=== PATIENT | male | born 1975 | race Caucasian/White ===

== ENCOUNTER 2024-04-23 17:23 | Emergency (ER) | payer MEDICAID, SELFPAY ==
[2024-04-23 18:03] VITALS: BP 122/80; PULSE 91; RESP 19; TEMP 36.5; O2SAT 97; BMI 40.4
--- NOTE | 2024-04-23 18:33 | XR_ITS ---
Examination: PA lateral chest 2 views TECHNIQUE: Upright PA lateral chest 2 views Exam date and time: April 23, 2024 at 1851 hours Comparison October 02, 2023 INDICATIONS: Chest pain fever today. FINDINGS: Normal heart size. Lungs are clear. The osseous structures are intact IMPRESSION: No active disease
--- NOTE | 2024-04-23 18:33 | EDRME_ITS ---
Rapid Medical Screening Exam [facility] Arrival date/time: 04/23/24 17:23 49M with history of HTN, psych disorder, and chronic back pain presents to ED with 1 day of CP, sore throat, and cough. Chief Complaint: Chest Pain Vital signs: Vital Signs Temperature 97.7 F 04/23/24 18:03 Pulse Rate 91 04/23/24 18:03 Respiratory Rate 19 04/23/24 18:03 Blood Pressure 122/80 04/23/24 18:03 Pulse Oximetry (%) 97 04/23/24 18:03 Oxygen Delivery Method Room Air 04/23/24 18:03
[2024-04-23 18:53] LABS: Basophils # (Auto) 0.1 Thou/mm3 (0.0-0.2); Basophils % (Auto) 0 % (0-2.5); Eosinophils % (Auto) 0 % (0-10); Hematocrit 46.4 % (41.0-53.0); Hemoglobin 15.5 g/dL (13.5-16.0); Immature Granulocytes % (Auto) 0 % (0-0); Immature Granulocytes Auto 0.07 Thou/mm3 (0.00-0.00); Lymphocytes # (Auto) 1.7 Thou/mm3 (1.0-4.8); Lymphocytes % (Auto) 10 % (10-50); Mean Corpuscular HGB Conc 33.4 g/dl (31.0-37.0); Mean Corpuscular Hemoglobin 29.2 pg (25.0-35.0); Mean Corpuscular Volume 87 fL (80-100); Monocytes # (Auto) 1.3 Thou/mm3 (0.0-0.8); Monocytes % (Auto) 7 % (0-12); Neutrophils % (Auto) 83 % (37-80); Nucleated Red Blood Cell % 0 /100 WBC (0); Platelet Count 246 Thou/mm3 (140-440); RDW Standard Deviation 45.5 fL (35.1-43.9); Red Blood Count 5.31 Miln/mm3 (4.50-5.90); White Blood Count 18.1 Thou/mm3 (3.8-10.6)
[2024-04-23 19:10] LABS: Alanine Aminotransferase 24 U/L (10-49); Albumin, Serum 4.9 gm/dL (3.5-5.0); Albumin/Globulin Ratio 1.5 (1.2-2.2); Alkaline Phosphatase 107 U/L (46-116); Anion Gap 3 (7-16); Aspartate Amino Transferase 20 U/L (0-34); BUN/Creatinine Ratio 11 Ratio (12-20); Bilirubin,Total 0.6 mg/dL (0.3-1.2); Blood Urea Nitrogen 11 mg/dL (9-23); Calcium 10.1 mg/dL (8.3-10.6); Calcium (Corrected) 10.1 mg/dL (8.5-10.1); Carbon Dioxide 29.3 mMol/L (20.0-31.0); Chloride 103 mMol/L (98-107); Estimated Creatinine Clearance 121.3 mL/min (>60); Globulin 3.2 gm/dL (2.3-3.5); Glucose 95 mg/dL (74-106); Osmolality,Calculated 269 (275-295); Potassium 4.6 mMol/L (3.4-5.1); Sodium 135 mMol/L (136-145); Total Protein 8.1 gm/dL (5.7-8.2); Troponin I < 0.020 ng/mL (0.0-0.045); eGFR > 60 See Note
[2024-04-23 19:31] LABS: Strep A Rapid Positive (Negative)
[2024-04-23 19:50] VITALS: BP 130/82; PULSE 85; RESP 18; TEMP 36.7; O2SAT 98
--- NOTE | 2024-04-23 21:18 | PD.EDFEVER ---
ED Fever RME/HPI General Chief Complaint: Chest Pain Stated Complaint: Refered from PCP for CP, Sore throat, fever Time Seen by Provider: 04/23/24 21:11 Arrival date/time: 04/23/24 17:23 RME / HPI RME / HPI Narrative: 49M with history of HTN, psych disorder, and chronic back pain presents to ED with 1 day of CP, sore throat, and cough. Severity of symptoms moderate. Patient also complained of painful swallowing. Was seen by PCP and was referred here for further management. Related Data Home Medications ?Medication ?Instructions ?Recorded ?Confirmed hydrochlorothiazide 25 mg tablet 25 mg PO QDAY ##30 05/09/17 10/02/23 methocarbamol 500 mg tablet 500 mg PO QDAY ##30 05/09/17 03/06/21 potassium chloride 8 mEq 8 meq PO QDAY ##30 05/09/17 03/06/21 tablet,extended release allopurinol 100 mg tablet 100 mg PO BID 03/06/21 10/02/23 metoprolol tartrate 25 mg tablet 25 mg PO BID 03/06/21 03/06/21 pantoprazole 20 mg tablet,delayed 20 mg PO BID 03/06/21 03/06/21 release sertraline 50 mg tablet 50 mg PO QDAY 03/06/21 10/02/23 losartan 25 mg tablet (Cozaar) 25 mg PO BID 10/02/23 10/02/23 Previous Rx's ?Medication ?Instructions ?Recorded clindamycin HCl 300 mg capsule 300 mg PO TID #21 caps 04/23/24 ibuprofen 800 mg tablet 800 mg PO TID PRN pain #30 tabs 04/23/24 Allergies Allergy/AdvReac Type Severity Reaction Status Date / Time amoxicillin Allergy Severe Anaphylaxis Verified 03/22/23 18:49 bee venom protein (honey bee) Allergy Severe Swelling Verified 03/22/23 18:49 of Lip/Tongue/Throat shellfish derived Allergy Severe Swelling Verified 10/02/23 20:14 of Lip/Tongue/Throat turkey Allergy Severe Swelling Verified 03/22/23 18:49 of Lip/Tongue/Throat Review of Systems Review of Systems Narrative Review of Systems: Review of system reviewed and within normal limits except mentioned in HPI Physical Exam Narrative Physical exam: VITAL SIGNS: Reviewed. GENERAL APPEARANCE: Alert and interactive, follows commands, no acute distress, HEAD AND FACE: Non-traumatic. ENT: PERRL, pink conjunctivitis, eyelid no trauma, Mucous membrane dry, oropharynx with erythema, no excessive ,exudates uvula on the midline NECK: Supple, nontender, no nuchal rigidity. CHEST: No tenderness, no crepitus, no paradoxical movement, no retractions. LUNGS: Clear, well ventilated, symmetric, no rales, no wheezing, no ronchi, no stridor, good breath sounds bilaterally. HEART: Regular rate, regular rhythm, no murmur, no gallops. ABDOMEN: Soft, positive bowel sounds, nondistended, no guarding, nontender, no rebound, no masses, RECTAL: Deferred. GENITAL: Deferred. NEUROLOGICAL: Gross motor function intact sensory function intact, Appropriate for age. MUSCULOSKELETAL: low back nontender, full range of motion. EXTREMITIES: Nontender, full range of motion. SKIN: Color pink, dry, no rash, no lacerations, no abrasions, no contusions. LYMPHATICS: Deferred. Course Quality Measures none Orders Category Date Time Status EKG (ED ONLY) *Do not use* NOW Care 04/23/24 18:33 Completed EKG (ED Only) Stat Exams 04/23/24 18:33 Ordered XR chest 2V Stat Exams 04/23/24 18:33 Completed CBC Stat Lab 04/23/24 18:39 Completed Comprehensive Metabolic Panel Stat Lab 04/23/24 18:39 Completed Strep A Rapid Stat Lab 04/23/24 18:44 Completed Troponin I Stat Lab 04/23/24 18:39 Completed Acetaminophen Tab [Tylenol ES Tab] Med 04/23/24 21:15 Discontinued 1,000 mg PO X1 ONE Clindamycin Vial [Cleocin vial] Med 04/23/24 21:18 Once 600 mg IM X1 ONE Ibuprofen Tab [Motrin Tab] Med 04/23/24 21:15 Discontinued 800 mg PO X1 ONE Vital Signs Vital signs: Vital Signs Temperature 97.7 F 04/23/24 18:03 Pulse Rate 91 04/23/24 18:03 Respiratory Rate 19 04/23/24 18:03 Blood Pressure 122/80 04/23/24 18:03 Pulse Oximetry (%) 97 04/23/24 18:03 Oxygen Delivery Method Room Air 04/23/24 18:03 Fever MDM Narrative MDM Narrative:: PATIENT'S WORKUP WITH unremarkable except positive for strep, leukocytosis of 18.1. Patient received clindamycin IM Motrin and Tylenol Patient data External records reviewed:: None Clinical information provided by:: none Social determinants that could affect healthcare access:: none Patient has the following chronic illnesses:: Hypertension psych How is presenting disease/condition affected by chronic disease/condition?: uneffected by Evaluation data The following diagnostics were reviewed and interpreted by me:: lab results and radiology exam(s) Lab and/or radiology exams considered but not ordered:: None Interpretation Summary: EKG as interpreted by me showed sinus rhythm, ventricular rate of 85 bpm, no ST segment elevation or depression noted. Laboratory workup significant for leukocytosis of 18.1. Positive for strep Medications / Prescriptions Medications or Prescriptions considered but not ordered:: None Medication administrations:: Medication Administration History Discontinued Medications Acetaminophen (Acetaminophen 500 Mg Tablet) 1,000 mg PO X1 ONE Stop: 04/23/24 21:16 Ibuprofen (Ibuprofen Tab 400 Mg Tablet) 800 mg PO X1 ONE Stop: 04/23/24 21:16 Clindamycin IM, Tylenol Motrin Consultations Consultation(s) initiated? (list below): No Diagnosis Fever Differential Diagnosis: community acquired pneumonia, viral infection and other (Strep throat) Most likely diagnosis given after review of the tests above:: Strep throat, fever Admission Indicated Admission indicated?: not indicated Explain why admission is indicated or not indicated:: Stable for discharge Admission Request Was there a request for admission?: No Disposition Plan Disposition Plan: Discharge Discharge Attestation Discharge Attestation: The patient was given an opportunity to ask questions and understood the discharge instructions. Discharge instructions specifically effects, indications for sooner follow up or return to the emergency department, and the expected course of current diagnosis. Patient condition: Stable Discharge Plan Plan Patient Disposition: HOME (Self Care) Disposition Comment: Stable Prescriptions/Referrals Prescriptions/Med Rec: New clindamycin HCl 300 mg capsule 300 mg PO TID Qty: 21 0RF ibuprofen 800 mg tablet 800 mg PO TID PRN (Reason: pain) Qty: 30 0RF No Action methocarbamol 500 MG tablet 500 mg PO QDAY Qty: 30 potassium chloride 8 MEQ tablet extended release 8 meq PO QDAY Qty: 30 hydrochlorothiazide 25 MG tablet 25 mg PO QDAY Qty: 30 allopurinol 100 mg tablet 100 mg PO BID Patient Comments: TAKE 1 TABLET BY MOUTH TWICE DAILY pantoprazole 20 mg tablet,delayed release (DR/EC) 20 mg PO BID Patient Comments: TAKE 1 TABLET BY MOUTH TWICE DAILY sertraline 50 mg tablet 50 mg PO QDAY Patient Comments: TAKE 1 TABLET BY MOUTH ONCE DAILY metoprolol tartrate 25 mg tablet 25 mg PO BID Patient Comments: TAKE 1 TABLET BY MOUTH TWICE DAILY WITH FOOD losartan [Cozaar] 25 mg Tablet 25 mg PO BID Referrals: Sadaf Rebollar PA-C [Primary Care Provider] - In 1 week Problem List Clinical Impression: Strep throat Patient/Caregiver Discharge Instructions Discharge Activity: activity as tolerated Education Materials: When to Use Antibiotics Additional Instructions: Thank you for the opportunity for serving you today. You are stable for discharged . You are advised to: Follow-up with your PCP in 1 to 2 days Return to ED for worsening of symptoms Increase oral fluids Take medication as prescribed Print Language: Belarusian Stand Alone Forms: [employer] Award Info., Work/School Release, Patient Portal Info Letter JUANCHO/ARIANNA Supervising Physician JUANCHO/ARIANNA Supervising Physician: MD [place]
[2024-04-23] MEDS: IBUPROFEN TAB 400 MG TABLET 800 MG PO (21:26)
[2024-04-23] MEDS: ACETAMINOPHEN 500 MG TABLET 1000 MG PO (21:26)
[2024-04-23] MEDS: CLINDAMYCIN PHOS INJ 150 MG/ML VIAL 6 ML 600 MG IM (21:29)
[2024-04-23 21:31] VITALS: BP 136/87; PULSE 85; RESP 18; TEMP 37.5; O2SAT 97
== END 2024-04-23 21:33 | disposition home or self-care (01) ==
PROVIDERS: Physician Assistant; Emergency Provider Emergency Medicine; PCP Physician Assistant Medical
DX: J02.0 Streptococcal pharyngitis (principal); I45.10 Unspecified right bundle-branch block; I10 Essential (primary) hypertension
CPT/HCPCS: 36415; 71046; 80053; 84484; 85025; 87651; 93005; 96372; 99283; J0736; A9270

== ENCOUNTER 2024-07-01 20:37 | Emergency (ER) | payer MEDICAID, SELFPAY ==
[2024-07-01 20:54] VITALS: BP 122/81; PULSE 68; RESP 18; TEMP 37.1; O2SAT 98
--- NOTE | 2024-07-01 20:59 | XR_ITS ---
Examination: PA lateral chest 2 views Technique: Upright PA lateral chest 2 views Exam date and time: July 01, 2024 2114 hrs. Indications: Chest pain abdomen beginning one week ago. Findings: Normal heart size. Lungs are clear. The osseous structures are intact Impression: No active disease
--- NOTE | 2024-07-01 21:00 | PD.EDRME ---
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 I have greeted and performed a focused initial assessment of this patient. A comprehensive ED assessment and evaluation of the patient, analysis of all test results, and completion of the medical decision making process will be conducted by additional ED providers. Chief Complaint: Chest Pain Vital signs: Vital Signs Temperature 98.8 F 07/01/24 20:54 Pulse Rate 68 07/01/24 20:54 Respiratory Rate 18 07/01/24 20:54 Blood Pressure 122/81 07/01/24 20:54 Pulse Oximetry (%) 98 07/01/24 20:54 Oxygen Delivery Method Room Air 07/01/24 20:54 Vital signs reviewed by provider: Yes
[2024-07-01 21:31] LABS: Collection Type, Urine Clean Catch
[2024-07-01 21:49] LABS: Bacteria,Urine Rare; Bilirubin,Urine Negative (Negative); Blood,Urine Negative (Negative); Clarity,Urine Clear (Clear/Hazy); Color,Urine Lt-Yellow (Lt Yel-Yel); Glucose, Urine Negative (Negative); Ketones,Urine Negative (Negative); Leukocyte Esterase,Urine Negative (Negative); Nitrite,Urine Negative (Negative); PH,Urine 7.5 (5.0-7.0); Protein,Urine Trace (Neg - Trace); RBC,Urine 4 /hpf (0-3); Specific Gravity,Urine 1.024 (1.001-1.035); Squamous Epithelial Cell,Urine 4 /hpf (0-5); WBC,Urine 1 /hpf (0-5)
[2024-07-01 23:02] LABS: Basophils % (Auto) 0 % (0-2.5); Eosinophils # (Auto) 0.1 Thou/mm3 (0.0-0.5); Eosinophils % (Auto) 1 % (0-10); Hematocrit 43.3 % (41.0-53.0); Hemoglobin 14.3 g/dL (13.5-16.0); Immature Granulocytes % (Auto) 0 % (0-0); Immature Granulocytes Auto 0.02 Thou/mm3 (0.00-0.00); Lymphocytes # (Auto) 1.7 Thou/mm3 (1.0-4.8); Lymphocytes % (Auto) 22 % (10-50); Mean Corpuscular Hemoglobin 29.2 pg (25.0-35.0); Mean Corpuscular Volume 88 fL (80-100); Monocytes # (Auto) 0.7 Thou/mm3 (0.0-0.8); Monocytes % (Auto) 9 % (0-12); Neutrophils # (Auto) 5.2 Thou/mm3 (1.8-7.7); Neutrophils % (Auto) 68 % (37-80); Nucleated Red Blood Cell % 0 /100 WBC (0); Platelet Count 197 Thou/mm3 (140-440); RDW Standard Deviation 43.9 fL (35.1-43.9); White Blood Count 7.6 Thou/mm3 (3.8-10.6)
[2024-07-01 23:19] LABS: B-Type Natriuretic Peptide 29 pg/mL (0-100); Partial Thromboplastin Time 30.8 Seconds (22.0-36.0); Prothrombin Time 11.3 Seconds (9.0-12.2)
[2024-07-01 23:25] LABS: Alanine Aminotransferase 15 U/L (10-49); Albumin, Serum 4.9 gm/dL (3.5-5.0); Albumin/Globulin Ratio 1.6 (1.2-2.2); Alkaline Phosphatase 89 U/L (46-116); Anion Gap 7 (7-16); Aspartate Amino Transferase 23 U/L (0-34); BUN/Creatinine Ratio 15 Ratio (12-20); Bilirubin,Total 0.4 mg/dL (0.3-1.2); Blood Urea Nitrogen 12 mg/dL (9-23); Calcium 9.9 mg/dL (8.3-10.6); Calcium (Corrected) 9.9 mg/dL (8.5-10.1); Carbon Dioxide 30.6 mMol/L (20.0-31.0); Chloride 101 mMol/L (98-107); Creatinine (Component) 0.8 mg/dL (0.6-1.3); Glucose 76 mg/dL (74-106); Magnesium 1.9 mg/dL (1.6-2.6); Osmolality,Calculated 276 (275-295); Potassium 4.5 mMol/L (3.4-5.1); Sodium 139 mMol/L (136-145); Total Protein 7.9 gm/dL (5.7-8.2); eGFR > 60 See Note
[2024-07-01 23:31] LABS: Amphetamine/Methamp Scrn,U Negative (Negative); Barbiturate Screen,Urine Negative (Negative); Benzodiazepines Screen,Urine Negative (Negative); Benzoylecgonine Screen, Ur Negative (Negative); Fentanyl Screen,Urine Negative (Negative); Opiate Screen,Urine Negative (Negative); THC Screen,Urine Negative (Negative)
[2024-07-01 23:59] LABS: Troponin I < 0.020 ng/mL (0.0-0.045)
--- NOTE | 2024-07-02 02:07 | PC.NURSE ---
NO ANSWER FOR LAB AT 0125, 0133
--- NOTE | 2024-07-02 02:09 | PC.NURSE ---
NO ANSWER FOR CALL BACK TO MAIN ED
== END 2024-07-02 02:09 | disposition left against medical advice (07) ==
LOC: SERX 21:20
PROVIDERS: Nurse Practitioner Family; Emergency Provider Emergency Medicine; PCP Physician Assistant Medical
DX: R07.2 Precordial pain (principal); I10 Essential (primary) hypertension; Z53.29 Procedure and treatment not carried out because of patient's decision for other reasons
CPT/HCPCS: 36415; 71046; 80053; 80307; 81001; 83735; 83880; 84484; 85025; 85610; 85730; 99281

== ENCOUNTER → 2024-08-18 | Outpatient (CLI) | payer MEDICAID, SELFPAY ==
--- NOTE | 2024-08-18 15:00 | XR_ITS ---
Examination: Carotid arterial duplex scan, ultrasound. Date and time of exam: August 18, 2024 1527 hrs. Indications: Dizziness episodes beginning 2 years ago Technique: Multiple sonographic images have been obtained of the carotid arteries and vertebral arteries, B-mode/grayscale imaging and Doppler spectral analysis and color flow Peak systolic and diastolic velocities have been recorded. Systolic diastolic ratios have been calculated. Findings: Right peak systolic velocities: Distal internal carotid artery peak systolic velocity is 0.5 M/sec Proximal internal carotid artery peak systolic velocity is 0.7 M/sec Carotid bifurcation peak systolic velocity is 1.0 M/sec External carotid artery peak systolic velocity is 0.6 M/sec Vertebral artery flow is antegrade. Left peak systolic velocities: Distal internal carotid artery peak systolic velocity is 0.5 M/sec Proximal internal carotid artery peak systolic velocity is 0.5 M/sec Carotid bifurcation peak systolic velocity is 1.1 M/sec External carotid artery peak systolic velocity is 0.5 M/sec Vertebral artery flow is antegrade Doppler waveform analysis demonstrates no spectral broadening Impression: Right internal carotid artery demonstrates 0-10% stenosis. Left internal carotid artery demonstrates 0-10% stenosis.
== END | disposition home or self-care (01) ==
PROVIDERS: PCP Physician Assistant Medical; Referring Provider Physician Assistant Medical; Visit Provider Physician Assistant Medical
DX: R42 Dizziness and giddiness (principal); R26.81 Unsteadiness on feet
CPT/HCPCS: 93880

== ENCOUNTER 2025-01-19 15:04 | Emergency (ER) | payer MEDICAID, SELFPAY ==
[2025-01-19 15:05] VITALS: BMI 38.7
[2025-01-19 15:13] VITALS: BP 157/99; PULSE 75; RESP 18; O2SAT 98
[2025-01-19] MEDS: [UNRECOGNIZED DRUG - OTHER] TOP (15:35)
[2025-01-19] MEDS: TRANEXAMIC ACID 500 MG TOP (15:35)
--- NOTE | 2025-01-19 15:57 | PD.EDDENTL ---
ED Dental RME/HPI General Chief complaint: Dental/Oral/Throat Stated complaint: BLEEDING IN MOUTH FROM DENTAL WORK Time Seen by Provider: 01/19/25 15:27 Arrival date/time: 01/19/25 15:04 49-year-old male presents to the emergency department today stating that he had 5 teeth removed today and is now bleeding from his mouth Limitations: no limitations Related Data Home Medications ?Medication ?Instructions ?Recorded ?Confirmed hydrochlorothiazide 25 mg tablet 25 mg PO QDAY ##30 05/09/17 10/02/23 methocarbamol 500 mg tablet 500 mg PO QDAY ##30 05/09/17 03/06/21 potassium chloride 8 mEq 8 meq PO QDAY ##30 05/09/17 03/06/21 tablet,extended release allopurinol 100 mg tablet 100 mg PO BID 03/06/21 10/02/23 metoprolol tartrate 25 mg tablet 25 mg PO BID 03/06/21 03/06/21 pantoprazole 20 mg tablet,delayed 20 mg PO BID 03/06/21 03/06/21 release sertraline 50 mg tablet 50 mg PO QDAY 03/06/21 10/02/23 losartan 25 mg tablet (Cozaar) 25 mg PO BID 10/02/23 10/02/23 Previous Rx's ?Medication ?Instructions ?Recorded clindamycin HCl 300 mg capsule 300 mg PO TID #21 caps 04/23/24 ibuprofen 800 mg tablet 800 mg PO TID PRN pain #30 tabs 04/23/24 Allergies Allergy/AdvReac Type Severity Reaction Status Date / Time amoxicillin Allergy Severe Anaphylaxis Verified 01/19/25 15:06 bee venom protein (honey bee) Allergy Severe Swelling Verified 01/19/25 15:06 of Lip/Tongue/Throat shellfish derived Allergy Severe Swelling Verified 01/19/25 15:06 of Lip/Tongue/Throat turkey Allergy Severe Swelling Verified 01/19/25 15:06 of Lip/Tongue/Throat Review of Systems Review of Systems Systems Reviewed: All systems reviewed, normal except as documented Constitutional Constitutional: Reports system reviewed and no additional complaints, except as documented, Denies fever(s) and Denies headache(s) Eyes Eyes: Reports system reviewed and no additional complaints, except as documented and Denies blurry vision ENT Ears, Nose, Mouth, and Throat: Reports system reviewed and no additional complaints, except as documented, Reports bleeding gums (Bleeding from mouth 5teeth removed today), Denies headache(s), Denies nasal congestion and Denies nasal discharge Cardiovascular Cardiovascular: Reports system reviewed and no additional complaints, except as documented, Denies chest pain and Denies dyspnea Respiratory Respiratory: Reports system reviewed and no additional complaints, except as documented, Denies chest congestion, Denies cough and Denies dyspnea Gastrointestinal Gastrointestinal: Reports system reviewed and no additional complaints, except as documented and Denies abdominal pain Integumentary/Breasts Skin/Breast: Reports system reviewed and no additional complaints, except as documented and Denies rash Neurologic Neurologic: Reports system reviewed and no additional complaints, except as documented, Reports as per HPI and Denies headache(s) Past Medical History Past Medical History CARDIAC: Positive Hypercholesterolemia and Hypertension; Negative Cardiac Disorders or Congestive Heart Failure RESPIRATORY: Negative Chronic Obstructive Pulmonary Disease (COPD) or Asthma GENITOURINARY: Negative Renal Disease ENDOCRINE: Negative Diabetes Mellitus Type 1 or Diabetes Mellitus Type 2 HEMATOLOGIC: Negative Sickle Cell Disease Social History SMOKING STATUS: Current every day smoker SUBSTANCE USE: does not use ED Exam General Limitations: Present no limitations General appearance: Present alert and in no apparent distress Head Head exam: Present atraumatic Eye Eye exam: Present normal appearance, PERRL and EOMI ENT ENT exam: Present normal exam, normal oropharynx and mucous membranes moist Neck Neck exam: Present normal inspection, full ROM and trachea midline Chest Chest inspection: Present normal inspection and symmetric chest wall rise Respiratory Respiratory exam: Present normal lung sounds bilaterally Cardiovascular Cardiovascular exam: Present regular rate, normal rhythm and normal heart sounds Abdominal Exam Abdominal exam: Present soft and normal bowel sounds Extremities Exam Extremities exam: Present normal inspection and full ROM Back Exam Back exam: Present normal inspection and full ROM Neurological Exam Neurological exam: Present alert, oriented X3 and CN II-XII intact Psychiatric Psychiatric exam: Present normal affect and normal mood Skin Skin exam: Present warm, dry, intact and normal color Course Quality Measures none Orders Category Date Time Status Tranexamic Acid Inj 500 mg Med 01/19/25 15:30 Discontinued Sterile Water 5 ml TOP X1 Vital Signs Vital signs: Vital Signs Pulse Rate 75 01/19/25 15:13 Respiratory Rate 18 01/19/25 15:13 Blood Pressure 157/99 H 01/19/25 15:13 Pulse Oximetry (%) 98 01/19/25 15:13 Oxygen Delivery Method Room Air 01/19/25 15:13 O2 saturation 98% on room air with normal limits Dental / Oral MDM Narrative MDM Narrative:: 49-year-old male presents to the emergency department today stating that he had 5 teeth removed today and is now bleeding from his mouth On exam patient has no significant bleeding Patient has a trickle of bleeding from the right lower dental site TXA applied Patient reevaluated no active bleeding Patient instructed to follow-up with a dentist soon as possible worsening symptoms return immediately Patient data External records reviewed:: [facility] previous records Clinical information provided by:: patient Social determinants that could affect healthcare access:: none Patient has the following chronic illnesses:: None How is presenting disease/condition affected by chronic disease/condition?: no chronic disease Evaluation data The following diagnostics were reviewed and interpreted by me:: other (specify) (N/A) Lab and/or radiology exams considered but not ordered:: Considered not ordered Interpretation Summary: N/A Medications / Prescriptions Medications or Prescriptions considered but not ordered:: Given Medication administrations:: Medication Administration History Discontinued Medications Tranexamic Acid 500 mg/ (Sterile Water 5 ml) 0 mg TOP X1 ONE Stop: 01/19/25 15:31 Last Admin: 01/19/25 15:35 Dose: 10 ml Documented By: MICHAEL Comments: given by [employer]GRAM[employer]YOR Given Consultations Consultation(s) initiated? (list below): No Diagnosis Dental Differential Diagnosis: gingival abscess, dental caries, toothache and dental abscess Most likely diagnosis given after review of the tests above:: Bleeding from mouth Admission Indicated Admission indicated?: not indicated Admission Request Was there a request for admission?: No Disposition Plan Disposition Plan: Discharge Discharge Attestation Discharge Attestation: The patient and all family members were given an opportunity to ask questions and understood the discharge instructions. Discharge instructions specifically effects, indications for sooner follow up or return to the emergency department, and the expected course of current diagnosis. Patient condition: Stable Discharge Plan Plan Patient Disposition: HOME (Self Care) Discharge Disposition comment: Stable Prescriptions/Referrals Prescriptions/Med Rec: No Action methocarbamol 500 MG tablet 500 mg PO QDAY Qty: 30 potassium chloride 8 MEQ tablet extended release 8 meq PO QDAY Qty: 30 hydrochlorothiazide 25 MG tablet 25 mg PO QDAY Qty: 30 allopurinol 100 mg tablet 100 mg PO BID Patient Comments: TAKE 1 TABLET BY MOUTH TWICE DAILY pantoprazole 20 mg tablet,delayed release (DR/EC) 20 mg PO BID Patient Comments: TAKE 1 TABLET BY MOUTH TWICE DAILY sertraline 50 mg tablet 50 mg PO QDAY Patient Comments: TAKE 1 TABLET BY MOUTH ONCE DAILY metoprolol tartrate 25 mg tablet 25 mg PO BID Patient Comments: TAKE 1 TABLET BY MOUTH TWICE DAILY WITH FOOD losartan [Cozaar] 25 mg Tablet 25 mg PO BID clindamycin HCl 300 mg capsule 300 mg PO TID Qty: 21 0RF ibuprofen 800 mg tablet 800 mg PO TID PRN (Reason: pain) Qty: 30 0RF Problem List Clinical Impression: Bleeding from mouth Patient/Caregiver Discharge Instructions Education Materials: Parts of the Mouth Additional Instructions: Please follow-up with your dentist in the next 24-48hrs for any worsening symptoms return here immediately Print Language: Armenian Stand Alone Forms: [employer] Award Info., Patient Portal Info Letter PA/TAX INTERN Supervising Physician PA/TAX INTERN Supervising Physician: Dr.madrid JOHNSON Attestation MD Attestation The patient was seen by the midlevel practitioner. I, the co-signing physician, was present during the entire ER visit. While I did not physically examine the patient, I was available for consultation as needed. I agree with the plan and documentation.
== END 2025-01-19 17:04 | disposition home or self-care (01) ==
LOC: SERX 16:17
PROVIDERS: Emergency Provider Family Medicine; PCP Family Medicine
DX: K13.79 Other lesions of oral mucosa (principal)
CPT/HCPCS: 99283; A4216; J3490

== ENCOUNTER 2025-03-10 18:36 | Emergency (ER) | payer MEDICAID, SELFPAY ==
--- NOTE | 2025-03-10 18:39 | EKG_ITS ---
[facility] Test Date: 2025-03-10 Pat Name: ZACK CARLOS Department: Room: - Gender: Male Methods Time Analyst: : 1975 Requested By: ED Temporary Provider Order Number: [id number] Reading MD: ED Temporary Provider Measurements Intervals [place] Rate: 80 P: 42 SC: 197 QRS: 253 QRSD: 147 T: 62 QT: 372 QTc: 430 Interpretive Statements SINUS RHYTHM RIGHT AXIS DEVIATION [QRS AXIS > 100] RIGHT BUNDLE BRANCH BLOCK [120+ ms QRS DURATION, UPRIGHT V1, 40+ ms S IN I/aVL/V4/V5/V6] Compared to ECG 10/02/2023 19:42:39 No significant changes /store/S0/[id number].pdf
[2025-03-10 18:50] VITALS: BP 130/87; PULSE 76; RESP 20; TEMP 37.1; O2SAT 99; BMI 35.9
--- NOTE | 2025-03-10 19:04 | XR_ITS ---
Examination: PA chest single view Technique: Upright PA chest single view Date and time: March 10, 2025, 1934 hrs. Indications: Chest pain shortness of breath numbness in the left shoulder today. Findings: Normal heart size. Lungs are clear. The osseous structures are intact Impression: No active disease
--- NOTE | 2025-03-10 19:04 | PD.EDRME ---
Rapid Medical Screening Exam RME Arrival date/time: 03/10/25 18:36 49M with history of HTN and anxiety presents to ED with 10 min CP that radiates to L arm, as well as some SOB and dizziness. 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 Patient denies URI symptoms. Chief Complaint: Chest Pain Vital signs: Vital Signs Temperature 98.8 F 03/10/25 18:50 Pulse Rate 76 03/10/25 18:50 Respiratory Rate 20 03/10/25 18:50 Blood Pressure 130/87 H 03/10/25 18:50 Pulse Oximetry (%) 99 03/10/25 18:50 Oxygen Delivery Method Room Air 03/10/25 18:50
[2025-03-10 19:29] LABS: Basophils # (Auto) 0.0 Thou/mm3 (0.0-0.2); Basophils % (Auto) 0 % (0-2.5); Eosinophils # (Auto) 0.1 Thou/mm3 (0.0-0.5); Eosinophils % (Auto) 2 % (0-10); Hematocrit 44.6 % (41.0-53.0); Hemoglobin 15.0 g/dL (13.5-16.0); Immature Granulocytes Auto 0.02 Thou/mm3 (0.00-0.00); Lymphocytes # (Auto) 2.1 Thou/mm3 (1.0-4.8); Lymphocytes % (Auto) 29 % (10-50); Mean Corpuscular HGB Conc 33.6 g/dl (31.0-37.0); Mean Corpuscular Hemoglobin 29.2 pg (25.0-35.0); Mean Corpuscular Volume 87 fL (80-100); Monocytes # (Auto) 0.8 Thou/mm3 (0.0-0.8); Monocytes % (Auto) 10 % (0-12); Neutrophils # (Auto) 4.2 Thou/mm3 (1.8-7.7); Neutrophils % (Auto) 58 % (37-80); Nucleated Red Blood Cell # 0.00 Thou/mm3 (0.00-0.00); Nucleated Red Blood Cell % 0 /100 WBC (0); Platelet Count 248 Thou/mm3 (140-440); RDW Standard Deviation 41.0 fL (35.1-43.9); Red Blood Count 5.14 Miln/mm3 (4.50-5.90); White Blood Count 7.3 Thou/mm3 (3.8-10.6)
[2025-03-10 19:46] LABS: INR 1.1 (0.9-1.3); Partial Thromboplastin Time 30.2 Seconds (22.0-36.0); Prothrombin Time 11.2 Seconds (9.0-12.2)
[2025-03-10 19:49] LABS: Alanine Aminotransferase 15 U/L (10-49); Albumin, Serum 4.7 gm/dL (3.5-5.0); Albumin/Globulin Ratio 1.7 (1.2-2.2); Alkaline Phosphatase 88 U/L (46-116); Anion Gap 7 (7-16); Aspartate Amino Transferase 17 U/L (0-34); BUN/Creatinine Ratio 8 Ratio (12-20); Bilirubin,Total 0.3 mg/dL (0.3-1.2); Blood Urea Nitrogen 7 mg/dL (9-23); Calcium 10.1 mg/dL (8.3-10.6); Calcium (Corrected) 10.1 mg/dL (8.5-10.1); Carbon Dioxide 27.8 mMol/L (20.0-31.0); Chloride 107 mMol/L (98-107); Creatinine (Component) 0.9 mg/dL (0.6-1.3); Estimated Creatinine Clearance 130.6 mL/min (>60); Globulin 2.8 gm/dL (2.3-3.5); Glucose 71 mg/dL (74-106); Osmolality,Calculated 279 (275-295); Potassium 4.1 mMol/L (3.4-5.1); Sodium 142 mMol/L (136-145); Total Protein 7.5 gm/dL (5.7-8.2); Troponin I < 0.020 ng/mL (0.0-0.045); eGFR > 60 See Note
--- NOTE | 2025-03-10 20:22 | PD.EDCHEST ---
ED Chest Pain RME/HPI General Chief Complaint: Chest Pain Stated Complaint: CHEST PAIN, LEFT ARM NUMBNESS Time Seen by Provider: 03/10/25 19:14 Arrival date/time: 03/10/25 18:36 Limitations: no limitations RME / HPI RME / HPI narrative: 03/10/25 18:36 49M with history of HTN and anxiety presents to ED with 10 min CP that radiates to L arm, as well as some SOB and dizziness. 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 Patient denies URI symptoms. Dr. Rankin's Main ED Evaluation: 49yo male with a history of HTN, DM presents to the ED for a chief complaint of mid chest pain that radiates to his back and left arm x 1800. Patient describes his pain as aching in nature, rating it an 8 out of 10 in severity. Patient reports associated generalized weakness. Patient denies any N/V, dizziness, or any other associated symptoms. Patient has experienced similar symptoms in the past. He last had a stress test 1 year ago and follows-up with sawyer helper, Dr. Burns. Related Data Home Medications ?Medication ?Instructions ?Recorded ?Confirmed hydrochlorothiazide 25 mg tablet 25 mg PO QDAY ##30 05/09/17 10/02/23 methocarbamol 500 mg tablet 500 mg PO QDAY ##30 05/09/17 03/06/21 potassium chloride 8 mEq 8 meq PO QDAY ##30 05/09/17 03/06/21 tablet,extended release allopurinol 100 mg tablet 100 mg PO BID 03/06/21 10/02/23 metoprolol tartrate 25 mg tablet 25 mg PO BID 03/06/21 03/06/21 pantoprazole 20 mg tablet,delayed 20 mg PO BID 03/06/21 03/06/21 release sertraline 50 mg tablet 50 mg PO QDAY 03/06/21 10/02/23 losartan 25 mg tablet (Cozaar) 25 mg PO BID 10/02/23 10/02/23 Previous Rx's ?Medication ?Instructions ?Recorded clindamycin HCl 300 mg capsule 300 mg PO TID #21 caps 04/23/24 ibuprofen 800 mg tablet 800 mg PO TID PRN pain #30 tabs 04/23/24 Allergies Allergy/AdvReac Type Severity Reaction Status Date / Time amoxicillin Allergy Severe Anaphylaxis Verified 01/19/25 15:06 bee venom protein (honey bee) Allergy Severe Swelling Verified 01/19/25 15:06 of Lip/Tongue/Throat shellfish derived Allergy Severe Swelling Verified 01/19/25 15:06 of Lip/Tongue/Throat turkey Allergy Severe Swelling Verified 01/19/25 15:06 of Lip/Tongue/Throat Review of Systems Review of Systems Systems Reviewed: All systems reviewed, normal except as documented ED Exam General Limitations: Present no limitations General appearance: Present alert and in no apparent distress Head Head exam: Present atraumatic Eye Eye exam: Present normal appearance, PERRL and EOMI ENT ENT exam: Present normal exam, normal oropharynx and mucous membranes moist Neck Neck exam: Present normal inspection, full ROM and trachea midline Chest Chest inspection: Present normal inspection and symmetric chest wall rise Respiratory Respiratory exam: Present normal lung sounds bilaterally Cardiovascular Cardiovascular exam: Present regular rate, normal rhythm and normal heart sounds Abdominal Exam Abdominal exam: Present soft and normal bowel sounds Extremities Exam Extremities exam: Present normal inspection and full ROM Back Exam Back exam: Present normal inspection and full ROM Neurological Exam Neurological exam: Present alert, oriented X3 and CN II-XII intact Psychiatric Psychiatric exam: Present normal affect and normal mood Skin Skin exam: Present warm, dry, intact and normal color Course Course Course Narrative: CXR is ordered for determining the etiology of chest pain. Quality Measures none Orders Category Date Time Status CT Screening NOW Care 03/10/25 21:43 Active EKG (ED ONLY) *Do not use* NOW Care 03/10/25 18:[address] angio chest Stat Exams 03/10/25 21:42 Completed EKG (ED Only) Stat Exams 03/10/25 18:39 Draft XR chest 1V portable Stat Exams 03/10/25 19:04 Completed CBC Stat Lab 03/10/25 19:12 Completed Comprehensive Metabolic Panel Stat Lab 03/10/25 19:12 Completed Partial Thromboplastin Time Stat Lab 03/10/25 19:12 Completed Prothrombin Time with INR Stat Lab 03/10/25 19:12 Completed Troponin I Stat Lab 03/10/25 19:12 Completed Troponin I Stat Lab 03/10/25 21:49 Completed Aspirin Med 03/10/25 19:04 Discontinued 325 mg PO X1 ONE Vital Signs Vital signs: Vital Signs Temperature 98.8 F 03/10/25 18:50 Pulse Rate 76 03/10/25 18:50 Respiratory Rate 20 03/10/25 18:50 Blood Pressure 130/87 H 03/10/25 18:50 Pulse Oximetry (%) 99 03/10/25 18:50 Oxygen Delivery Method Room Air 03/10/25 18:50 Chest Pain MDM Narrative MDM Narrative:: Scribe Attestation: 03/10/25 - Iman Liu am scribing for and in the presence of Dr. Rankin. HEART score is 2, indicating the patient is at a low risk for a cardiac event. Patient data External records reviewed:: [facility] previous records (Per chart review, patient was seen here on 03/22/23 for costochondritis.) Clinical information provided by:: patient Social determinants that could affect healthcare access:: none Patient has the following chronic illnesses:: HTN, DM How is presenting disease/condition affected by chronic disease/condition?: uneffected by Evaluation data The following diagnostics were reviewed and interpreted by me:: lab results, radiology exam(s) and EKG tracing(s) Lab and/or radiology exams considered but not ordered:: none Interpretation Summary: CBC normal, PT/INR/PTT normal, Glucose 71, Initial troponin normal, Repeat troponin normal. EKG done at 1849, NSR, rate of 80, RBBB, no ST elevations or depressions, no STEMI, according to my interpretation. [facility] Report Signed Patient: ZACK CARLOS [facility]. Record#: [id number] Birthdate: 1975 Age/Sex: 49 / M Location: [facility] Attending Dr: Ordering Physician: Phil Muniz PA-C Date of Service: 03/10/25 Procedure(s): XR chest 1V portable Accession Number(s): [id number] cc: Sadaf Rebollar PA-C; Solomon Bustamante MD; Phil Muniz PA-C~ Examination: PA chest single view Technique: Upright PA chest single view Date and time: March 10, 2025, 1934 hrs. Indications: Chest pain shortness of breath numbness in the left shoulder today. Findings: Normal heart size. Lungs are clear. The osseous structures are intact Impression: No active disease Dictated By: Solomon Bustamante MD Signed By: <Electronically signed by Solomon Bustamante MD in [place]> 03/10/252046 [facility] Report Signed Patient: ZACK CARLOS Record#: [id number] Birthdate: 1975 Age/Sex: 49 / M Location: [facility] Attending Dr: Ordering Physician: Vciky Coleman MD Date of Service: 03/10/25 Procedure(s): CT angio chest Accession Number(s): [id number] cc: Sadaf Rebollar PA-C; Solomon Bustamante MD; Vicky Coleman MD~ Examination: CTA chest with intravenous contrast 2-D reconstructions 3-D reconstructions, vascular Date and time of exam: March 18, 2025, 1046 hrs. Indications: Chest pain shortness of breath today, history mild ascending thoracic aorta aneurysm 4 cm 2022 CTDI: vol (mGy) 11.1 DLP: (mGycm) 535 Technique: Multiple axial sections of the thorax have been obtained. 3 mm slice thickness, from below the hemidiaphragms to above the apices of the lungs. Mediastinal and lung density settings have been obtained. 2-D sagittal and coronal reconstructions. 3-D angiographic renderings, 3-D volume renderings, 3D post processing, vascular maximum intensity projections obtained. Contrast administered is 100 cc Isovue 370. Low dose protocols were performed. One or more of the following dose reduction techniques were used; automated exposure control, adjustment of the mA and/or KV according to patient size, use of iterative reconstruction technique. Findings: AP dimension ascending thoracic aorta 4.3 cm Pulmonary artery segments are not enlarged No pulmonary artery filling defects Mild enlargement cardiac contour No pneumonia or pulmonary edema No pleural disease No visualized liver or splenic lesion Contracted gallbladder No pancreatic mass Impression: Stable mild aneurysmal dilatation ascending thoracic aorta 4.3 cm Negative for pulmonary artery emboli No interval pneumonia or pulmonary edema or pleural disease Dictated By: Solomon Bustamante MD Signed By: <Electronically signed by Solomon Bustamante MD in OV> 03/10/25 2319 Medications / Prescriptions Medications or Prescriptions considered but not ordered:: none Medication administrations:: Medication Administration History Discontinued Medications Aspirin (Aspirin 325 Mg Tablet) 325 mg PO X1 ONE Stop: 03/10/25 19:05 Last Admin: 03/10/25 19:08 Dose: 325 mg Documented By: RICKI see above Consultations Consultation(s) initiated? (list below): No Diagnosis Chest Pain Differential Diagnosis: pneumothorax, atypical chest pain, st elevation myocardial infarction, costochondritis and other (NSTEMI, PE) Most likely diagnosis given after review of the tests above:: see clinical impression below Admission Indicated Admission indicated?: not indicated Admission Request Was there a request for admission?: No Disposition Plan Disposition Plan: Discharge Discharge Attestation Discharge Attestation: The patient and all family members were given an opportunity to ask questions and understood the discharge instructions. Discharge instructions specifically effects, indications for sooner follow up or return to the emergency department, and the expected course of current diagnosis. Patient condition: Stable Discharge Plan Plan Patient Disposition: HOME (Self Care) Patient condition on transfer: Stable Prescriptions/Referrals Prescriptions/Med Rec: No Action methocarbamol 500 MG tablet 500 mg PO QDAY Qty: 30 potassium chloride 8 MEQ tablet extended release 8 meq PO QDAY Qty: 30 hydrochlorothiazide 25 MG tablet 25 mg PO QDAY Qty: 30 allopurinol 100 mg tablet 100 mg PO BID Patient Comments: TAKE 1 TABLET BY MOUTH TWICE DAILY pantoprazole 20 mg tablet,delayed release (DR/EC) 20 mg PO BID Patient Comments: TAKE 1 TABLET BY MOUTH TWICE DAILY sertraline 50 mg tablet 50 mg PO QDAY Patient Comments: TAKE 1 TABLET BY MOUTH ONCE DAILY metoprolol tartrate 25 mg tablet 25 mg PO BID Patient Comments: TAKE 1 TABLET BY MOUTH TWICE DAILY WITH FOOD losartan [Cozaar] 25 mg Tablet 25 mg PO BID clindamycin HCl 300 mg capsule 300 mg PO TID Qty: 21 0RF ibuprofen 800 mg tablet 800 mg PO TID PRN (Reason: pain) Qty: 30 0RF Referrals: Sadaf Rebollar PA-C [Primary Care Provider] - In 1 week Problem List Clinical Impression: Atypical chest pain Patient/Caregiver Discharge Instructions Education Materials: ED Chest Pain, Uncertain Cause Additional Instructions: Today your CAT scan does not show that you have worsening changes in your stable aneurysm. You will need to follow-up with your primary care in 6 months to see if you need any further testing or following of your aneurysm. Return to Emergency Department for any worsening symptoms, or any other concerns. Print Language: Czech Stand Alone Forms: [employer] Award Info., Patient Portal Info Letter
[2025-03-10 20:39] VITALS: BP 136/85; PULSE 61; RESP 20; O2SAT 95
[2025-03-10 20:43] VITALS: BP 136/85; PULSE 60; RESP 19; TEMP 36.5; O2SAT 97
--- NOTE | 2025-03-10 21:42 | XR_ITS ---
Examination: CTA chest with intravenous contrast 2-D reconstructions 3-D reconstructions, vascular Date and time of exam: March 18, 2025, 1046 hrs. Indications: Chest pain shortness of breath today, history mild ascending thoracic aorta aneurysm 4 cm 2022 CTDI: vol (mGy) 11.1 DLP: (mGycm) 535 Technique: Multiple axial sections of the thorax have been obtained. 3 mm slice thickness, from below the hemidiaphragms to above the apices of the lungs. Mediastinal and lung density settings have been obtained. 2-D sagittal and coronal reconstructions. 3-D angiographic renderings, 3-D volume renderings, 3D post processing, vascular maximum intensity projections obtained. Contrast administered is 100 cc Isovue 370. Low dose protocols were performed. One or more of the following dose reduction techniques were used; automated exposure control, adjustment of the mA and/or KV according to patient size, use of iterative reconstruction technique. Findings: AP dimension ascending thoracic aorta 4.3 cm Pulmonary artery segments are not enlarged No pulmonary artery filling defects Mild enlargement cardiac contour No pneumonia or pulmonary edema No pleural disease No visualized liver or splenic lesion Contracted gallbladder No pancreatic mass Impression: Stable mild aneurysmal dilatation ascending thoracic aorta 4.3 cm Negative for pulmonary artery emboli No interval pneumonia or pulmonary edema or pleural disease
[2025-03-10 22:19] LABS: Troponin I < 0.002 ng/mL (0.0-0.045)
[2025-03-10 22:27] VITALS: BP 133/77; PULSE 55; RESP 18; TEMP 36.7; O2SAT 96
[2025-03-11 00:37] VITALS: BP 127/72; PULSE 58; RESP 19; TEMP 36.8; O2SAT 97
[2025-03-11 01:12] VITALS: BP 117/76; PULSE 60; TEMP 36.7; O2SAT 96
== END 2025-03-11 01:13 | disposition home or self-care (01) ==
PROVIDERS: Physician Assistant; Emergency Provider Emergency Medicine; PCP Physician Assistant Medical
DX: R07.89 Other chest pain (principal); I45.10 Unspecified right bundle-branch block; I71.21 Aneurysm of the ascending aorta, without rupture; I10 Essential (primary) hypertension; E11.9 Type 2 diabetes mellitus without complications; Z91.013 Allergy to seafood
CPT/HCPCS: 36415; 71045; 71275; 80053; 84484; 85025; 85610; 85730; 93005; 99284; A4649; Q9967; A9270

== ENCOUNTER 2025-05-01 08:21 | Emergency (ER) | payer MEDICAID, SELFPAY ==
[2025-05-01 08:36] VITALS: BP 141/86; PULSE 64; RESP 18; TEMP 36.5; O2SAT 97; BMI 39.0
--- NOTE | 2025-05-01 08:43 | PD.EDBACK ---
ED Back Injury Pain RME/HPI General Chief Complaint: Back Pain/Injury Stated Complaint: Lower back pain, legs are weak Time Seen by Provider: 05/01/25 08:29 Arrival date/time: 05/01/25 08:21 50-year-old male presents emergency dept today complains of acute on chronic back pain patient reports pain is worse with movement patient reports symptom onset at this particular episode today. Patient reports no fever nausea or vomiting no saddle anesthesia no loss of bowel or bladder Limitations: no limitations Related Data Home Medications ?Medication ?Instructions ?Recorded ?Confirmed hydrochlorothiazide 25 mg tablet 25 mg PO QDAY ##30 05/09/17 10/02/23 methocarbamol 500 mg tablet 500 mg PO QDAY ##30 05/09/17 03/06/21 potassium chloride 8 mEq 8 meq PO QDAY ##30 05/09/17 03/06/21 tablet,extended release allopurinol 100 mg tablet 100 mg PO BID 03/06/21 10/02/23 metoprolol tartrate 25 mg tablet 25 mg PO BID 03/06/21 03/06/21 pantoprazole 20 mg tablet,delayed 20 mg PO BID 03/06/21 03/06/21 release sertraline 50 mg tablet 50 mg PO QDAY 03/06/21 10/02/23 losartan 25 mg tablet (Cozaar) 25 mg PO BID 10/02/23 10/02/23 Previous Rx's ?Medication ?Instructions ?Recorded clindamycin HCl 300 mg capsule 300 mg PO TID #21 caps 04/23/24 ibuprofen 800 mg tablet 800 mg PO TID PRN pain #30 tabs 04/23/24 cyclobenzaprine 10 mg tablet 10 mg PO TID PRN muscle spasm 10 05/01/25 days #30 tab-caps hydrocodone 5 mg-acetaminophen 325 1 tab PO BID PRN pain #10 tabs 05/01/25 mg tablet ibuprofen 800 mg tablet 800 mg PO TID PRN pain #30 tabs 05/01/25 Allergies Allergy/AdvReac Type Severity Reaction Status Date / Time amoxicillin Allergy Severe Anaphylaxis Verified 05/01/25 08:25 bee venom protein (honey bee) Allergy Severe Swelling Verified 05/01/25 08:25 of Lip/Tongue/Throat shellfish derived Allergy Severe Swelling Verified 05/01/25 08:25 of Lip/Tongue/Throat turkey Allergy Severe Swelling Verified 05/01/25 08:25 of Lip/Tongue/Throat Review of Systems Review of Systems Systems Reviewed: All systems reviewed, normal except as documented Constitutional Constitutional: Reports system reviewed and no additional complaints, except as documented, Denies fever(s) and Denies headache(s) Eyes Eyes: Reports system reviewed and no additional complaints, except as documented and Denies blurry vision ENT Ears, Nose, Mouth, and Throat: Reports system reviewed and no additional complaints, except as documented, Denies headache(s), Denies nasal congestion and Denies nasal discharge Cardiovascular Cardiovascular: Reports system reviewed and no additional complaints, except as documented, Denies chest pain and Denies dyspnea Respiratory Respiratory: Reports system reviewed and no additional complaints, except as documented, Denies chest congestion, Denies cough and Denies dyspnea Gastrointestinal Gastrointestinal: Reports system reviewed and no additional complaints, except as documented and Denies abdominal pain Musculoskeletal Musculoskeletal: Reports system reviewed and no additional complaints, except as documented and Reports back pain Integumentary/Breasts Skin/Breast: Reports system reviewed and no additional complaints, except as documented and Denies rash Neurologic Neurologic: Reports system reviewed and no additional complaints, except as documented, Reports as per HPI and Denies headache(s) Past Medical History Past Medical History CARDIAC: Positive Hypercholesterolemia and Hypertension; Negative Cardiac Disorders or Congestive Heart Failure RESPIRATORY: Negative Chronic Obstructive Pulmonary Disease (COPD) or Asthma GENITOURINARY: Negative Renal Disease ENDOCRINE: Positive Diabetes Mellitus Type 2; Negative Diabetes Mellitus Type 1 HEMATOLOGIC: Negative Sickle Cell Disease Social History SMOKING STATUS: Current every day smoker SUBSTANCE USE: does not use ED Exam General Limitations: Present no limitations General appearance: Present alert and in no apparent distress Head Head exam: Present atraumatic, normocephalic and normal inspection Eye Eye exam: Present normal appearance, PERRL and EOMI; Absent conjunctival injection ENT ENT exam: Present normal exam, normal oropharynx and mucous membranes moist Neck Neck exam: Present normal inspection, full ROM and trachea midline Chest Chest inspection: Present normal inspection and symmetric chest wall rise Respiratory Respiratory exam: Present normal lung sounds bilaterally Cardiovascular Cardiovascular exam: Present regular rate, normal rhythm and normal heart sounds Abdominal Exam Abdominal exam: Present soft and normal bowel sounds Extremities Exam Extremities exam: Present normal inspection and full ROM Back Exam Back exam: Present normal inspection and full ROM Back 1 view image:  1. back pain Neurological Exam Neurological exam: Present alert, oriented X3 and CN II-XII intact Psychiatric Psychiatric exam: Present normal affect and normal mood Skin Skin exam: Present warm, dry, intact and normal color Course Quality Measures none Orders Category Date Time Status Ketorolac Inj [Toradol Inj] Med 05/01/25 08:44 Discontinued 30 mg IM X1 ONE Vital Signs Vital signs: Vital Signs Temperature 97.7 F 05/01/25 08:36 Pulse Rate 64 05/01/25 08:36 Respiratory Rate 18 05/01/25 08:36 Blood Pressure 141/86 H 05/01/25 08:36 Pulse Oximetry (%) 97 05/01/25 08:36 Oxygen Delivery Method Room Air 05/01/25 08:36 O2 saturation 97% room air with normal Back Pain / Injury MDM Narrative MDM Narrative:: 50-year-old male presents emergency dept today complains of acute on chronic back pain patient reports pain is worse with movement patient reports symptom onset at this particular episode today. Patient reports no fever nausea or vomiting no saddle anesthesia no loss of bowel or bladder On exam patient well-appearing does not appear look toxic no distress Patient given pain medication here discharged home with pain meds and muscle relaxers Patient discharged home in no distress to follow-up with primary care doctor in the next 24 to 48 hours and for any worsening symptoms to return to the ER immediately Patient data External records reviewed:: [facility] previous records Clinical information provided by:: patient Social determinants that could affect healthcare access:: none Patient has the following chronic illnesses:: see hx How is presenting disease/condition affected by chronic disease/condition?: caused by Evaluation data The following diagnostics were reviewed and interpreted by me:: radiology exam(s) Lab and/or radiology exams considered but not ordered:: Radiology obtain Interpretation Summary: Reviewed by me Medications / Prescriptions Medications or Prescriptions considered but not ordered:: given Medication administrations:: Medication Administration History Discontinued Medications Ketorolac Tromethamine (Ketorolac Inj 30 Mg/Ml Vial) 30 mg IM X1 ONE Stop: 05/01/25 08:45 given Consultations Consultation(s) initiated? (list below): No Diagnosis Differential diagnosis back pain/injury: lumbar radiculopathy and strain of lumbar region Most likely diagnosis given after review of the tests above:: back pain Admission Indicated Admission indicated?: not indicated Admission Request Was there a request for admission?: No Disposition Plan Disposition Plan: Discharge Discharge Attestation Discharge Attestation: The patient and all family members were given an opportunity to ask questions and understood the discharge instructions. Discharge instructions specifically effects, indications for sooner follow up or return to the emergency department, and the expected course of current diagnosis. Patient condition: Stable Discharge Plan Plan Patient Disposition: HOME (Self Care) Discharge Disposition comment: stable Prescriptions/Referrals Prescriptions/Med Rec: New cyclobenzaprine 10 mg tablet 10 mg PO TID PRN (Reason: muscle spasm) 10 Days Qty: 30 0RF ibuprofen 800 mg tablet 800 mg PO TID PRN (Reason: pain) Qty: 30 0RF hydrocodone-acetaminophen 5-325 mg tablet 1 tab PO BID MDD 10 PRN (Reason: pain) Qty: 10 0RF No Action methocarbamol 500 MG tablet 500 mg PO QDAY Qty: 30 potassium chloride 8 MEQ tablet extended release 8 meq PO QDAY Qty: 30 hydrochlorothiazide 25 MG tablet 25 mg PO QDAY Qty: 30 allopurinol 100 mg tablet 100 mg PO BID Patient Comments: TAKE 1 TABLET BY MOUTH TWICE DAILY pantoprazole 20 mg tablet,delayed release (DR/EC) 20 mg PO BID Patient Comments: TAKE 1 TABLET BY MOUTH TWICE DAILY sertraline 50 mg tablet 50 mg PO QDAY Patient Comments: TAKE 1 TABLET BY MOUTH ONCE DAILY metoprolol tartrate 25 mg tablet 25 mg PO BID Patient Comments: TAKE 1 TABLET BY MOUTH TWICE DAILY WITH FOOD losartan [Cozaar] 25 mg Tablet 25 mg PO BID clindamycin HCl 300 mg capsule 300 mg PO TID Qty: 21 0RF ibuprofen 800 mg tablet 800 mg PO TID PRN (Reason: pain) Qty: 30 0RF Problem List Clinical Impression: Back pain Patient/Caregiver Discharge Instructions Education Materials: Anatomy of a Normal Spine Additional Instructions: Please follow up with your primary care doctor in the next 24-48hrs for any worsening symptoms return here immediately Print Language: Italian Stand Alone Forms: [employer] Award Info., Patient Portal Info Letter PA/BARREL RIFLER BUTTON Supervising Physician PA/BARREL RIFLER BUTTON Supervising Physician: Dr. Koehler
[2025-05-01] MEDS: KETOROLAC INJ 30 MG/ML VIAL IM (09:04)
== END 2025-05-01 09:29 | disposition home or self-care (01) ==
LOC: SERX 09:03
PROVIDERS: Emergency Provider Emergency Medicine; PCP Physician Assistant Medical
DX: M54.9 Dorsalgia, unspecified (principal); G89.29 Other chronic pain
CPT/HCPCS: 96372; 99282; J1885